=== PATIENT | female | born 1955 | race Caucasian/White ===

== ENCOUNTER 2016-08-20 21:45 | Inpatient (IN) | payer BC ==
--- NOTE | ~2016-08-20 | CO ---
Unit #: [id number] #: [id number] Patient: CAR NI [id number] [address] [address] [id number] MR#: [id number] NAME: CAR NI ROOM: [facility] Age: 60 Sex: F Admission Date: 08/21/2016 : 1955 Attending Physician: Melecio Hinton M.D. Primary Care Physician: Sukhi Lal M.D. Consultation Date: 08/22/2016 CONSULTATION REPORT CHIEF COMPLAINT Left flank pain. HISTORY OF PRESENT ILLNESS This is a 60-year-old woman with a history of kidney stones. The patient had some flank pain, evaluated at outside hospital. CT scan showed an 8 mm stone in the proximal ureter. The patient transferred to [facility] for admission. Her pain started day before with severe, constant, sharp not worse or better with any maneuver or positions. The patient could not get comfortable. PAST MEDICAL HISTORY Kidney stones, she has a pacemaker and defibrillator, diverticulitis, cervical cancer, migraines, hysterectomy, tonsillectomy, pacemaker. MEDICATIONS Aspirin, Pravachol, Prozac, Imitrex, Coreg, and lisinopril. ALLERGIES No known drug allergies. FAMILY HISTORY Noncontributory. SOCIAL HISTORY Smoking, yes. Alcohol, no. PHYSICAL EXAMINATION VITAL SIGNS: Afebrile, vital signs stable. CARDIAC: Benign. PULMONARY: Benign. EARS AND NOSE: Normal to visualization and palpation for the ears. ABDOMEN: Soft with no CVA tenderness. No guarding. No rebound. ASSESSMENT 8 mm left ureteral stone and other stones. The patient informed about the options risks, benefits, and alternatives. She is requesting a ureteroscopy, laser lithotripsy, basket extraction, and stent placement. Dictated by... Millicent Landry/abhijit Unit #: [id number] #: [id number] Patient: CAR NI TD: 08/22/2016 09:09 JOB #: [id number] CONSULTATION REPORT Page 1 of 1 X Ellis De Oliveira MD CONSULTATION REPORT
--- NOTE | ~2016-08-20 | OR ---
Unit #: [id number] #: [id number] Patient: CAR NI [id number] [address] [place], [place] [address] [id number] MR#: [id number] NAME: CAR NI ROOM: 458 Date of Procedure: 08/22/2016 Admission Date: 08/21/2016 Surgeon: Ellis De Oliveira M.D. : 1955 Attending Physician: Melecio Hinton M.D. Primary Care Physician: Sukhi Lal M.D. OPERATIVE REPORT PREOPERATIVE DIAGNOSES Left ureteral stone, renal colic, hydronephrosis. POSTOPERATIVE DIAGNOSES Left ureteral stone, renal colic, hydronephrosis. PROCEDURES PERFORMED Cystoscopy, left ureteroscopy, laser lithotripsy, basket extraction, stent placement with tether. ANESTHESIA General. DESCRIPTION OF PROCEDURE After informed consent, she was taken to the operating room, placed on general anesthetic and positioned in lithotomy. Her vagina and perineum were prepped and draped in usual sterile fashion. Cystoscopy was performed showing a normal bladder and urethra. The entire bladder was inspected. There were no tumors, no stones, no diverticula, and the fluoroscopy was performed showing what appears to be some stones in the proximal ureter and collecting system. A wire was placed under fluoroscopic guidance into the left collecting system. A ureteral access sheath was placed over the wire. The wire was removed. This was done under fluoroscopy. Ureteroscopy was performed. There were no stones in the distal or mid ureter; however, proximally in collecting system, there were some stones. Laser was used and the stone was broken up into multiple pieces. A Nitinol basket was used and the pieces were removed. The collecting system was inspected again and there were no other stones. A 5 x 24 double-J stent was placed under fluoroscopy into the collecting system. There was good coil in the collecting system and in the bladder. The bladder was drained. The string was cut short and tied and tucked into her introitus. The patient to return to the floor. She will be discharged home and return to see me next week for stent removal. She tolerated the procedure well. Dictated by... Ellis De Oliveira M.D. CODY/abhijit TD: 08/23/2016 01:14 Unit #: [id number] #: [id number] Patient: CAR NI JOB #: [id number] OPERATIVE REPORT Page 1 of 1 X Ellis De Oliveira MD PROCEDURE OPERATIVE NOTE
--- NOTE | ~2016-08-20 | HP ---
Unit #: [id number] #: [id number] Patient: CAR NI [id number] [address] [place], [place] [address] [id number] MR#: [id number] NAME: CAR NI ROOM: 458 Age: 60 Sex: F Admission Date: 08/21/2016 : 1955 Attending Physician: Melecio Hinton M.D. Primary Care Physician: Sukhi Lal M.D. HISTORY AND PHYSICAL CHIEF COMPLAINT Nausea, vomiting. HISTORY OF PRESENT ILLNESS The patient is a 60-year-old female who presented to [facility] emergency department with a complaint of nausea and vomiting. She states that it started at approximately 1800 on the day of presentation. She states that it began as nausea and progressed to nausea with significant vomiting approximately 30 minutes later. She has left sided flank/back pain as well. She is feeling somewhat better with pain medications and nausea medications given in the emergency department. CT scan shows 7 mm proximal left UPJ or ureteral stone with left sided hydronephrosis and significant stranding. PAST MEDICAL HISTORY 1. AICD placement, status post cardiac arrest. 2. Hypertension. 3. Hysterectomy for cervical cancer. SOCIAL HISTORY The patient smokes half pack a day. Denies alcohol and illicit drug use. FAMILY HISTORY Lung cancer. ALLERGIES No known drug allergies. HOME MEDICATIONS 1. Imitrex 50 mg p.o. as needed. 2. Coreg 6.25 mg p.o. b.i.d. 3. Lisinopril 10 mg p.o. daily. 4. Prozac 20 mg daily. 5. Pravachol 20 mg p.o. daily. 6. Aspirin 81 mg daily. REVIEW OF SYSTEMS Ten point review of systems obtained, negative except as per HPI. PHYSICAL EXAMINATION VITAL SIGNS: Temperature 97.5, pulse 65, blood pressure 126/63. GENERAL: 60-year-old female in no acute distress who appears stated age. HEENT: Pupils equally round. Extraocular movements intact. Mucous membranes dry. Unit #: [id number] #: [id number] Patient: CAR NI NECK: Supple. No JVD, no lymphadenopathy. CARDIAC: Regular rate and rhythm. No murmurs, gallops or rubs. LUNGS: Clear to auscultation bilaterally. ABDOMEN: Mildly tender to palpation on the left. Soft. No rebound or guarding. EXTREMITIES: No clubbing, cyanosis or edema. They are warm and dry. PSYCH: Alert and oriented x3. Affect is appropriate. NEUROLOGICAL: Cranial nerves II-XII intact grossly. The patient moves all extremities equally and with purpose. SKIN: No rashes, bruises or ulcers. MUSCULOSKELETAL: No muscle or joint pain, no muscle or joint swelling. DIAGNOSTIC STUDIES LABORATORY: Chemistries are normal. CBC shows white count of 12.9, otherwise normal. UA shows 5-10 red cells. IMAGING: CT scan as mentioned above. In addition, she has two nonobstructing stones in the lower pole of the left kidney. ASSESSMENT AND PLAN 1. Obstructing kidney stone: The patient has been admitted and urology consult has been obtained. She will be taken to the operating room in the morning. 2. Pain: The patient has been started on Dilaudid protocol. 3. Prophylaxis: The patient has been started on SCDs. Dictated by Melecio Hinton M.D. ELVIRA/nerieda TD: 08/22/2016 07:49 JOB #: [id number] HISTORY AND PHYSICAL Page 1 of 1 X Melecio Hinton MD HISTORY AND PHYSICAL
--- NOTE | ~2016-08-20 | CT4 ---
[facility] A Service of [facility] RADIOLOGY TEXT RESULTS PATIENT: CAR NI LOCATION: C4B 458-01 : [birth year] UNIT #: [id number] AGE: [address]: Melecio Hinton MD SEX: F ORDER DR: [id number] [place] [id number] I MR#: [id number] Acc #: [id number] NAME: CAR NI : 1955 SEX: F STUDY DATE/TIME: 08/20/2016 22:34 UNIT: SEDOF ROOM: [id number] STUDY DESCRIPTION: CT Abd and Pelv Wo Cont Attending Physician: Melecio Hinton M.D. Ordering Physician: Harry Burnett M.D. Primary Care Physician: Sukhi aLl M.D. MEDICAL IMAGING REPORT This report is preliminary unless electronic signature is present. EXAM CT abdomen and pelvis without contrast history HISTORY Right lower quadrant pain, flank pain onset 1600 hours today COMPARISON CT abdomen and pelvis 06/05/[address] exam was performed with one or more of the following radiation dose reduction techniques: Automatic exposure control, adjustment of mA and/or kV according to patient size, and iterative reconstruction. FINDINGS Axial images performed through the abdomen and pelvis without contrast. Multiplanar reconstructed images reviewed at a workstation. Abdomen: Lung bases unremarkable. Pacemaker leads noted within the heart. Liver, spleen, gallbladder, pancreas and adrenal glands unremarkable. The right kidney appears normal. The left kidney demonstrates enlargement, perinephric edema and hydronephrosis compatible with acute obstruction. There is a 7 mm proximal ureteral stone or UPJ stone. There are 2 additional stones in the lower pole of the right kidney. Visualized GI tract unremarkable. There are a few sigmoid diverticula. Pelvis: Bladder unremarkable. The uterus surgically absent. Multiple pelvic calcifications noted compatible with phleboliths. Osseous structures, soft tissues unremarkable. IMPRESSION [facility] A Service of [facility] RADIOLOGY TEXT RESULTS PATIENT: CAR NI LOCATION: C4B 458-01 : [birth year] UNIT #: [id number] AGE: [address]: Melecio Hinton MD SEX: F ORDER DR: 7 mm proximal left UPJ or proximal ureteral stone with moderate left-sided hydronephrosis and extensive perinephric edema and stranding consistent with acute obstruction. There are also 2 sizeable nonobstructing stones lower pole left kidney. Dictated by... Rogerio Smith M.D. THIS IS AN ELECTRONICALLY VERIFIED REPORT Rogerio Smith M.D. at 08/21/2016 10:53 PM Angel TD: 08/21/2016 13:03 JOB #: [id number] MEDICAL IMAGING REPORT Page 1 of 1
[~2016-08-20 21:45] MED LIST: ASPIRIN81 M1 PO; ATENOLOL25 MG PO; CARVEDILOL6.25 MG PO; CHEWABLE ASPIRI81 MG PO; CHOLESTROL MED PO; FLOMAX0.4 M1 PO; IMITREX50 MG PO; LISINOPRIL10 MG PO; PERCOCET5/325 PO; PHENERGAN25 M1 PO; PHENERGAN25 MG PO; PRAVACHOL20 MG PO; PRAVASTATIN SOD20 MG PO; PROZAC PO; SUMATRIPTAN SUC50 MG PO; TENORMIN50 MG PO; VICODIN 5/1 TAB 5/50 PO
[2016-08-20 21:55] LABS: BASOPHIL# 0.1 X10e3 (0-0.3); BASOPHIL% 0.6 % (0-2.5); EOSINOPHIL# 0.1 X10e3 (0-0.7); EOSINOPHIL% 0.9 % (0.0-7.0); HEMATOCRIT 44.5 % (35.0-45.0); HEMOGLOBIN 14.9 gm/dL (12.0-16.0); LYMPHOCYTE# 2.1 X10e3 (1.0-3.5); LYMPHOCYTE% 16.1 % (17.0-45.0); MEAN CORPUSCULAR HEMOGLOBIN 30.2 PG (28-34); MEAN CORPUSCULAR HGB CONC 33.6 g/dL (30-36); MEAN PLATELET VOLUME 11.8 FL (6.5-11.5); MONOCYTE# 0.7 X10e3 (0-1.0); MONOCYTE% 5.4 % (3.0-12.0); NEUTROPHIL# 9.9 X10e3 (1.5-7.1); PLATELET COUNT 182 X10e3 (140-420); RED BLOOD COUNT 4.95 X10e (3.90-5.30); RED CELL DISTRIBUTION WIDTH 12.8 % (11.0-15.5); WHITE BLOOD COUNT 12.9 X10e3 (4.0-10.5)
[2016-08-20 21:56] LABS: DIFF IND NO
[2016-08-20 22:11] LABS: ALBUMIN SERUM 4.1 g/dL (3.5-5.0); BILIRUBIN,TOTAL 0.6 mg/dL (0.2-2.0); BUN/CREATININE RATIO 13.33; CALCIUM SERUM 9.2 mg/dL (8.4-10.2); CREATININE SERUM 0.9 mg/dL (0.6-1.4); GLOM FILT RATE Estimated 70.5 mL/min (>60); POTASSIUM 3.3 mmol/L (3.5-5.1); PROTEIN TOTAL SERUM 7.6 g/dL (6.0-8.3)
[2016-08-20 22:29] LABS: URINE SOURCE CLEAN CATCH
[2016-08-20 22:31] LABS: URINE APPEARANCE HAZY; URINE BILIRUBIN NEG (NEG); URINE BLOOD TRACE-INTACT (NEG); URINE COLOR YELLOW; URINE GLUCOSE NEG (NORM); URINE KETONE 1+ (NEG); URINE LEUKOCYTE ESTERASE NEG (NEG); URINE NITRATE NEG (NEG); URINE PH 7.5 (5-8); URINE PROTEIN NEG (NEG); URINE SPECIFIC GRAVITY 1.015 (1.003-1.035); URINE UROBILINOGEN 0.2 MG/DL (NORM)
[2016-08-20 22:37] LABS: MICRO INDICATED? YES
[2016-08-20 22:38] LABS: CULTURE INDICATED? NO; URINE AMORPHOUS SEDIMENT AMORP PHOSPHATES; URINE BACTERIA NEG (NEG); URINE MUCUS PRESENT; URINE SQUAMOUS EPITHELIAL CELL OCCAS /[HPF]
[2016-08-22] MEDS ORDERED: BACTRIM DS TABL1 TA1 PO (10:07)
[2016-08-22] MEDS ORDERED: HYDROCODONE-APA1 T57 PO (10:09)
[2016-08-22] MEDS ORDERED: ZOFRAN ODT4 MG PO (11:35)
== END 2016-08-22 12:05 | disposition home health service (06) | DRG 669 ==
LOC: SED 21:45 → C4B 08-21 10:42
PROVIDERS: Urology
PROC: 0T778DZ Dilation of Left Ureter with Intraluminal Device, Via Natural or Artificial Opening Endoscopic (ICD-10-PCS; 2016-08-22)
PROC: 0TJB8ZZ Inspection of Bladder, Via Natural or Artificial Opening Endoscopic (ICD-10-PCS; 2016-08-22)
PROC: 0TC78ZZ Extirpation of Matter from Left Ureter, Via Natural or Artificial Opening Endoscopic (ICD-10-PCS; principal; 2016-08-22 07:30)
DX: N13.2 Hydronephrosis with renal and ureteral calculous obstruction (principal); I10 Essential (primary) hypertension; F32.9 Major depressive disorder, single episode, unspecified; E78.5 Hyperlipidemia, unspecified; I25.10 Atherosclerotic heart disease of native coronary artery without angina pectoris; F17.210 Nicotine dependence, cigarettes, uncomplicated; Z90.710 Acquired absence of both cervix and uterus; Z85.41 Personal history of malignant neoplasm of cervix uteri; Z80.1 Family history of malignant neoplasm of trachea, bronchus and lung; Z79.82 Long term (current) use of aspirin; Z95.810 Presence of automatic (implantable) cardiac defibrillator; G43.909 Migraine, unspecified, not intractable, without status migrainosus
CPT/HCPCS: 74176; 80053; 81003; 82365; 85025; 88300; 96374; 96375; 99285; C2617; J0690; J1170; J2250; J2270; J2405; J3010

== ENCOUNTER → 2016-09-28 | Outpatient (CLI) | payer OTHER ==
[~2016-09-28] MED LIST changes: +BACTRIM DS TABL1 TA1 PO; +HYDROCODONE-APA1 T57 PO; +ZOFRAN ODT4 MG PO
--- NOTE | ~2016-09-28 | US77 ---
[facility] A Service of [facility] RADIOLOGY TEXT RESULTS PATIENT: CAR NI LOCATION: [facility] : 59 UNIT #: [id number] AGE: [address]: Martin Man MD SEX: F ORDER DR: [id number] [facility] [address] [place], [place] [address] [id number] MR#: [id number] Acc #: [id number] NAME: CAR NI : 1955 SEX: F STUDY DATE/TIME: 09/28/2016 9:28 UNIT: [facility] ROOM: STUDY DESCRIPTION: US Kidney Bilateral Complete Attending Physician: Martin Man M.D. Referring Physician: Martin Man M.D. Ordering Physician: Martin Man M.D. Primary Care Physician: Sukhi Lal M.D. MEDICAL IMAGING REPORT This report is preliminary unless electronic signature is present EXAM Renal ultrasound INDICATIONS Renal calculi. Followup. PROCEDURE Foley-scale and Doppler imaging of the kidneys and bladder. COMPARISON CT from 08/20/2016 FINDINGS Right kidney measures 8.2 cm. No hydronephrosis. Unremarkable bladder. The left kidney measures 10.1 cm. There is no hydronephrosis. Previously demonstrated calculi in the lower pole of the left kidney are not clearly seen on this study. IMPRESSION 1. No hydronephrosis. The left-sided hydronephrosis has resolved. 2. The previously shown nonobstructing calculi in the left kidney are not clearly seen on this study Dictated by... Hung Orellana M.D. THIS IS AN ELECTRONICALLY VERIFIED REPORT Hung Orellana M.D. at 09/29/2016 7:21 AM EED/shanta TD: 09/28/2016 13:22 JOB #: [id number] [facility] A Service of [facility] RADIOLOGY TEXT RESULTS PATIENT: CAR NI LOCATION: [facility] #: [id number] : 59 UNIT #: [id number] AGE: [address]: Martin Man MD SEX: F ORDER DR: MEDICAL IMAGING REPORT Page 1 of 1 COPY
== END | disposition home or self-care (01) ==
LOC: CGUS 09:05
DX: N20.0 Calculus of kidney (principal)
CPT/HCPCS: 76770